=== PATIENT | female | born 1940 ===

== ENCOUNTER 2022-03-04 02:19 | Emergency (ER) | payer OTHER ==
[~2022-03-04] VITALS: Ht 149.9 cm; Wt 83.5 kg
[2022-03-04] MEDS ORDERED: CLINDAMYCIN HC300 MG PO (05:05)
[2022-03-04] MEDS ORDERED: INTESTINEX680 M1 PO (05:05)
== END 2022-03-04 05:18 | disposition home or self-care (01) ==
LOC: ER 02:19
DX: S01.81XA Laceration without foreign body of other part of head, initial encounter (principal); W18.30XA Fall on same level, unspecified, initial encounter; Y93.89 Activity, other specified; Y92.012 Bathroom of single-family (private) house as the place of occurrence of the external cause; Z20.822 Contact with and (suspected) exposure to COVID-19; Z88.6 Allergy status to analgesic agent; Z88.0 Allergy status to penicillin